=== PATIENT | female | born 1950 | race Caucasian/White ===

== ENCOUNTER 2020-01-23 10:54 | Emergency (ER) | payer OTHER, MEDICAID ==
[~2020-01-23] VITALS: Ht 152.4 cm; Wt 76.6 kg
[~2020-01-23 10:54] MED LIST: ACETAMINOPHEN-1 EAC1 PO; ADULT LOW DOSE81 MG PO; ALDACTAZIDE 251 EAC1 PO; GLYBURIDE 2.52.5 M1 GT; IBUPROFEN 800800 M1 PO; LEVOTHROID 00.075 M1 PO; LISINOPRIL30 MG PO; PRENATAL; TOPROL XL 50 MG50 M1 PO; TRICOR145 MG PO; VICODIN ES TAB1 EACH PO; ZESTRIL2.5 MG PO; ZOLOFT100 MG PO
[2020-01-23] MEDS ORDERED: AMARYL4 MG PO (10:58)
[2020-01-23] MEDS ORDERED: JANUVIA100 MG PO (10:59)
[2020-01-23 11:40] LABS: URINE BILIRUBIN NEGATIVE (Negative); URINE BLOOD NEGATIVE (Negative); URINE CLARITY CLEAR; URINE COLOR YELLOW; URINE GLUCOSE-RANDOM 3+ (Negative); URINE KETONES NEGATIVE (Negative); URINE LEUKOCYTES-REFLEX NEGATIVE (Negative); URINE NITRITE-REFLEX NEGATIVE (Negative); URINE PROTEIN NEGATIVE (Negative); URINE SPECIFIC GRAVITY 1.025 (1.005-1.030); URINE UROBILINOGEN 0.2 E.U./dl (0.2-1.0)
[2020-01-23] MEDS ORDERED: NORCO 5-325 TA1 EAC1 PO (12:46)
[2020-01-23 13:06] VITALS: BP 147/75
== END 2020-01-23 13:08 | disposition home or self-care (01) ==
LOC: M.ERS 10:54
PROVIDERS: Emergency Medicine Emergency Medical Services
DX: M25.552 Pain in left hip (principal); E11.9 Type 2 diabetes mellitus without complications; Z90.49 Acquired absence of other specified parts of digestive tract; Z98.51 Tubal ligation status; Z90.12 Acquired absence of left breast and nipple; Z88.2 Allergy status to sulfonamides